=== PATIENT | female | born 1935 | race Two or more races ===

== ENCOUNTER 2017-09-05 14:52 | Inpatient (IN) | payer OTHER ==
[~2017-09-05] VITALS: Ht 165.1 cm; Wt 73.9 kg
[~2017-09-05 14:52] MED LIST: ACET325T82 PO; ASCO500T11 PO; BUME2TAB3 PO; CALC667C5 PO; CLON0.2D TD; HYDR50TA15 PO; NIFE90TA30 PO; SODI650T PO
[2017-09-05] MEDS ORDERED: IPRATROPIUM BROM 0.5 MG/2.5ML INH SOL HHN ONE (15:30)
[2017-09-05] MEDS ORDERED: ALBUTEROL SULF 2.5 MG/0.5ML(0.5%) NEB SOLN HHN ONE (15:30)
[2017-09-05] MEDS ORDERED: methylPREDNISolone SOD SUCC 125 MG/2 ML VL IV ONE (15:30)
[2017-09-05 15:45] LABS: Basophils # (auto) 0 uL; Basophils % (auto) 0.3 % (0.0-2.0); Eosinophils # (auto) 0 uL; Eosinophils % (auto) 0.3 % (0.0-7.0); Hematocrit 27.4 % (36.0-46.0); Hemoglobin 9.2 g/dL (12.2-16.2); Lymphocytes # (auto) 0.5 uL; Mean Corpuscular Hemoglobin 33.6 pg (28.0-32.0); Mean Corpuscular Hgb Conc. 33.5 g/dL (32.0-36.0); Mean Corpuscular Volume 100.3 fL (80.0-100.0); Monocytes # (auto) 0.6 uL; Monocytes % (auto) 8.5 % (0.0-12.0); Neutrophils # (auto) 6.1 uL; Neutrophils % (auto) 83.9 % (37.0-80.0); Red Blood Cells 2.73 10^6/uL (4.0-5.20); Red Cell Distribution Width 16.9 % (11.8-14.3); White Blood Cell 7.3 10^3/uL (4.4-10.8)
[2017-09-05 15:50] LABS: Platelet Count (auto) 124 10^3/uL (140-450)
[2017-09-05 16:02] LABS: Albumin 3.1 g/dL (3.4-5.0); BUN/Creatinine Ratio 5.1; Calcium 9.3 mg/dL (8.5-10.1); Magnesium 2.5 mg/dL (1.6-2.6); Potassium 4.6 mmol/L (3.5-5.1)
[2017-09-05 16:07] LABS: Bilirubin, Total 0.5 mg/dL (0.2-1.0)
[2017-09-05] MEDS ORDERED: LORazepam 0.5 MG TAB PO PRN (16:30)
[2017-09-05] MEDS ORDERED: cloNIDine 0.2 mg/24hr 7DAY PATCH TD SCH (16:30)
[2017-09-05] MEDS ORDERED: TEMAZEPAM 15 MG CAP PO PRN (16:30)
[2017-09-05] MEDS ORDERED: MORPHINE SULFATE 4 MG/ML SYR/VIAL IV PRN ×2 (16:30)
[2017-09-05] MEDS ORDERED: PROMETHAZINE HCL 25 MG/ML 1ML IV PRN (16:30)
[2017-09-05] MEDS ORDERED: ACETAMINOPHEN 500 MG TAB PO PRN (16:30)
[2017-09-05] MEDS ORDERED: OSELTAMIVIR 75 MG CAP PO ONE (16:30)
[2017-09-05] MEDS ORDERED: DEXTROSE (50%) 50ML SYRG IV PRN (16:30)
[2017-09-05] MEDS ORDERED: LACTULOSE 20Gm/30ML SOLN PO PRN (16:30)
[2017-09-05] MEDS ORDERED: VANCOMYCIN PER PHARMACY 0 MG IV SCH (16:30)
[2017-09-05] MEDS ORDERED: ALBUTEROL SULF 2.5 MG/0.5ML(0.5%) NEB SOLN NEB PRN (16:30)
[2017-09-05] MEDS ORDERED: NITROGLYCERIN 0.4 MG SL TAB SL PRN (16:30)
[2017-09-05] MEDS ORDERED: HYDROcodone-ACET 5/325MG TAB PO PRN (16:30)
[2017-09-05] MEDS ORDERED: PIPERACILLIN-TAZOB 2.25GM 50 ML IV ONE (16:30)
[2017-09-05] MEDS: ASPirin 81 mg TAB PO SCH (17:15)
[2017-09-05] MEDS: InsuLIN REG 1unit/0.01ml Soln (100units/ml) SC SCH ×2 (17:43→22:00)
[2017-09-05] MEDS: ACCU-CHEK COMFORT CURVE STRIP VI SCH ×2 (17:43→22:00)
[2017-09-05] MEDS ORDERED: OSELTAMIVIR 30 MG CAP PO SCH (17:45)
[2017-09-05] MEDS ORDERED: LEVOFLOXACIN 500MG 100 ML IV ONE (18:00)
[2017-09-05] MEDS: ALBUTEROL SULF 2.5 MG/0.5ML(0.5%) NEB SOLN NEB SCH (18:27)
[2017-09-05] MEDS: IPRATROPIUM BROM 0.5 MG/2.5ML INH SOL NEB SCH (18:27)
[2017-09-05] MEDS: CALCIUM ACETATE 667 MG CAP PO SCH (19:05)
[2017-09-05] MEDS ORDERED: VANCOMYCIN 1GM/250ML 250 ML IV ONE (19:30)
[2017-09-05] MEDS ORDERED: OSELTAMIVIR 30 MG CAP PO PRN (19:30)
[2017-09-05] MEDS ORDERED: AZITHROMYCIN 500MG/ 250ML 250 ML IV SCH ×2 (20:00→21:00)
[2017-09-05 20:35] VITALS: BP 148/62
[2017-09-05 21:42] VITALS: BP 130/67
[2017-09-05 22:00] VITALS: BP 148/62
[2017-09-05] MEDS ORDERED: OSELTAMIVIR 75 MG CAP PO SCH (22:00)
[2017-09-05] MEDS: SODIUM BICARBONATE 650 MG TAB PO SCH (22:55)
[2017-09-05] MEDS: CARVEDILOL 3.125 MG TAB PO SCH (22:56)
[2017-09-05] MEDS: hydrALAZINE HCL 25 MG TAB PO SCH (23:01)
[2017-09-06] MEDS: ALBUTEROL SULF 2.5 MG/0.5ML(0.5%) NEB SOLN NEB SCH ×4 (00:46→19:44)
[2017-09-06] MEDS: IPRATROPIUM BROM 0.5 MG/2.5ML INH SOL NEB SCH ×4 (00:46→19:44)
[2017-09-06] MEDS: PIPERACILLIN-TAZOB 2.25GM 50 ML IV SCH ×2 (04:45→16:57)
[2017-09-06 05:00] VITALS: BP 162/84
[2017-09-06] MEDS: FUROSEMIDE 40 MG/4 ML VIAL IV SCH ×2 (06:06→18:00)
[2017-09-06] MEDS: ACCU-CHEK COMFORT CURVE STRIP VI SCH ×4 (06:16→21:47)
[2017-09-06] MEDS: InsuLIN REG 1unit/0.01ml Soln (100units/ml) SC SCH ×4 (06:16→21:47)
[2017-09-06 06:29] LABS: Basophils # (auto) 0 uL; Eosinophils # (auto) 0 uL; Hemoglobin 7.8 g/dL (12.2-16.2); Lymphocytes # (auto) 0.3 uL; Lymphocytes % (auto) 7.5 % (10.0-50.0); Mean Corpuscular Hemoglobin 33.9 pg (28.0-32.0); Monocytes # (auto) 0.1 uL; Neutrophils # (auto) 4.1 uL; Nucleated Red Blood Cells % 0.1 %; Red Blood Cells 2.31 10^6/uL (4.0-5.20); White Blood Cell 4.6 10^3/uL (4.4-10.8)
[2017-09-06 06:31] LABS: Hematocrit 23.1 % (36.0-46.0); Mean Corpuscular Hgb Conc. 33.9 g/dL (32.0-36.0); Mean Corpuscular Volume 99.8 fL (80.0-100.0); Monocytes % (auto) 2.7 % (0.0-12.0); Neutrophils % (auto) 89.8 % (37.0-80.0); Platelet Count (auto) 100 10^3/uL (140-450); Red Cell Distribution Width 16.9 % (11.8-14.3)
[2017-09-06 06:42] LABS: Albumin 2.7 g/dL (3.4-5.0); BUN/Creatinine Ratio 6.3; Bilirubin, Total 0.5 mg/dL (0.2-1.0); Calcium 8.9 mg/dL (8.5-10.1); Total Protein 6.1 g/dL (6.4-8.2)
[2017-09-06 08:00] VITALS: BP 142/62
[2017-09-06 09:00] VITALS: BP 142/62
[2017-09-06] MEDS: CALCIUM ACETATE 667 MG CAP PO SCH ×3 (09:14→18:00)
[2017-09-06] MEDS ORDERED: LEVOFLOXACIN 500MG 100 ML IV ONE (10:00)
[2017-09-06] MEDS: ENOXAPARIN SOD 30 MG/0.3 ML SYRINGE SC SCH (10:49)
[2017-09-06] MEDS: SODIUM BICARBONATE 650 MG TAB PO SCH ×2 (10:49→21:46)
[2017-09-06] MEDS: ASPirin 81 mg TAB PO SCH (10:49)
[2017-09-06] MEDS: ENALAPRIL MALEATE 2.5 MG TAB PO SCH (10:50)
[2017-09-06] MEDS: hydrALAZINE HCL 25 MG TAB PO SCH ×2 (10:51→21:46)
[2017-09-06] MEDS: NIFEdipine ER 30 MG TAB PO SCH (10:51)
[2017-09-06] MEDS: CARVEDILOL 3.125 MG TAB PO SCH ×2 (10:52→21:47)
[2017-09-06 13:00] VITALS: BP 124/42
[2017-09-06 17:00] VITALS: BP 114/57
[2017-09-06] MEDS ORDERED: OSELTAMIVIR 30 MG CAP PO PRN (19:00)
[2017-09-06] MEDS ORDERED: OSELTAMIVIR 30 MG CAP PO ONE (19:15)
[2017-09-06 21:36] VITALS: BP 133/68
[2017-09-07] MEDS: ALBUTEROL SULF 2.5 MG/0.5ML(0.5%) NEB SOLN NEB SCH ×3 (01:07→14:00)
[2017-09-07] MEDS: IPRATROPIUM BROM 0.5 MG/2.5ML INH SOL NEB SCH ×3 (01:07→14:00)
[2017-09-07] MEDS: PIPERACILLIN-TAZOB 2.25GM 50 ML IV SCH (04:06)
[2017-09-07 05:23] VITALS: BP 132/60
[2017-09-07] MEDS: FUROSEMIDE 40 MG/4 ML VIAL IV SCH (05:41)
[2017-09-07] MEDS: ACCU-CHEK COMFORT CURVE STRIP VI SCH (06:19)
[2017-09-07] MEDS: InsuLIN REG 1unit/0.01ml Soln (100units/ml) SC SCH ×2 (06:19→11:30)
[2017-09-07 07:24] LABS: Basophils # (auto) 0 uL; Basophils % (auto) 0.8 % (0.0-2.0); Eosinophils # (auto) 0 uL; Eosinophils % (auto) 0.7 % (0.0-7.0); Hematocrit 26.4 % (36.0-46.0); Hemoglobin 8.9 g/dL (12.2-16.2); Lymphocytes # (auto) 0.7 uL; Lymphocytes % (auto) 12.8 % (10.0-50.0); Mean Corpuscular Hgb Conc. 33.7 g/dL (32.0-36.0); Monocytes # (auto) 0.3 uL; Monocytes % (auto) 5.5 % (0.0-12.0); Neutrophils # (auto) 4.2 uL; Neutrophils % (auto) 80.2 % (37.0-80.0); Nucleated Red Blood Cells % 0.2 %; Platelet Count (auto) 132 10^3/uL (140-450); Red Blood Cells 2.54 10^6/uL (4.0-5.20); Red Cell Distribution Width 17.6 % (11.8-14.3); White Blood Cell 5.2 10^3/uL (4.4-10.8)
[2017-09-07 07:46] LABS: BUN/Creatinine Ratio 8.8; Calcium 8.9 mg/dL (8.5-10.1); Magnesium 3.2 mg/dL (1.6-2.6)
[2017-09-07 08:09] LABS: Potassium 5.6 mmol/L (3.5-5.1)
[2017-09-07] MEDS ORDERED: ALBUTEROL SULF 2.5 MG/0.5ML(0.5%) NEB SOLN NEB ONE (08:30)
[2017-09-07] MEDS ORDERED: SODIUM POLYSTYRENE SULF 15GM/60ML SUSP PO ONE (08:30)
[2017-09-07 09:00] VITALS: BP 145/63
[2017-09-07] MEDS: hydrALAZINE HCL 25 MG TAB PO SCH (09:31)
[2017-09-07] MEDS: CARVEDILOL 3.125 MG TAB PO SCH (09:32)
[2017-09-07] MEDS: SODIUM BICARBONATE 650 MG TAB PO SCH (09:32)
[2017-09-07] MEDS: ENALAPRIL MALEATE 2.5 MG TAB PO SCH (09:33)
[2017-09-07] MEDS: ASPirin 81 mg TAB PO SCH (09:33)
[2017-09-07] MEDS: ENOXAPARIN SOD 30 MG/0.3 ML SYRINGE SC SCH (09:34)
[2017-09-07] MEDS: NIFEdipine ER 30 MG TAB PO SCH (09:34)
[2017-09-07] MEDS ORDERED: LEVOFLOXACIN 250MG 50 ML IV SCH (10:00)
[2017-09-07] MEDS: CALCIUM ACETATE 667 MG CAP PO SCH (10:02)
== END 2017-09-07 16:20 | disposition home or self-care (01) | DRG 177 ==
LOC: EDBD 14:52 → ER 14:52 → TELE 14:53 → TELE-WESTW 20:35
PROVIDERS: ADMIT Internal Medicine; ATTEND Internal Medicine
DX: J10.08 Influenza due to other identified influenza virus with other specified pneumonia (principal); N18.6 End stage renal disease; J15.6 Pneumonia due to other Gram-negative bacteria; I13.2 Hypertensive heart and chronic kidney disease with heart failure and with stage 5 chronic kidney disease, or end stage renal disease; F03.91 Unspecified dementia, unspecified severity, with behavioral disturbance; D69.6 Thrombocytopenia, unspecified; E11.22 Type 2 diabetes mellitus with diabetic chronic kidney disease; D63.8 Anemia in other chronic diseases classified elsewhere; E78.5 Hyperlipidemia, unspecified; I50.9 Heart failure, unspecified; Z90.710 Acquired absence of both cervix and uterus; Z99.2 Dependence on renal dialysis; Z90.89 Acquired absence of other organs; Z80.9 Family history of malignant neoplasm, unspecified; Z88.5 Allergy status to narcotic agent; Z79.899 Other long term (current) drug therapy; Z90.49 Acquired absence of other specified parts of digestive tract
CPT/HCPCS: 36415; 71045; 80048; 80053; 80061; 80202; 82962; 83036; 83605; 83735; 83880; 84443; 84484; 85025; 87040; 87804; 93005; 94640; 94644; 96365; 96367; 96375; 99291; G9035; J1815; J1956; J2543